=== PATIENT | female | born 2000 | race Caucasian/White ===

== ENCOUNTER 2021-02-25 22:20 | Emergency (ER) | payer OTHER ==
[~2021-02-25] VITALS: Ht 165.1 cm; Wt 81.8 kg
[2021-02-26 00:53] LABS: COVID AG,FIA SOURCE NASOPHARYNGEAL
[2021-02-26 05:13] VITALS: BP 132/85
== END 2021-02-26 05:22 | disposition short-term general hospital (02) ==
LOC: EMS 22:22
DX: F32.9 Major depressive disorder, single episode, unspecified (principal); Z20.822 Contact with and (suspected) exposure to COVID-19
CPT/HCPCS: 99285